=== PATIENT | male | born 1975 | race American Indian/Alaskan Native ===

== ENCOUNTER 2017-10-16 02:20 | Emergency (ER) | payer OTHER ==
[2017-10-16 02:44] VITALS: TEMP 99.1
[2017-10-16] MEDS ORDERED: Sodium Chloride 0.9% 1,000 ML IV STA (02:47)
--- NOTE | 2017-10-16 02:55 | ED PDOC ---
Arrival/HPI - General Chief Complaint: Shortness Of Breath Time Seen by Provider: 10/16/17 02:45 Historian: Patient - History of Present Illness Narrative History of Present Illness (Text): 10/16/17 02:48 A 41 year old male, past smoker, presents to the emergency department for a complaint of shortness of breath, fevers, chills, cough, rhinorrhea, and sore throat for the past 5 days. Patient states that he believed his symptoms were a result of withdrawal from his cigarette smoking. Patient states that his fever has resolved since yesterday, but continues to experience the cough, sore throat , rhinorrhea, and shortness of breath. The patient denies headache, dizziness, chest pain, dyspnea on exertion, abdominal pain, nausea, vomiting, diarrhea, neck pain, urinary/bowel changes, or any other complaint. Time/Duration: Other (5 Days) Symptom Onset: Sudden Symptom Course: Unchanged Activities at Onset: Rest, Light Context: Home Past Medical History - Provider Review Nursing Documentation Reviewed: Yes - Psychiatric Hx Substance Use: Yes Family/Social History - Physician Review Nursing Documentation Reviewed: Yes Family/Social History: No Known Family HX Smoking Status: Former Smoker Hx Alcohol Use: Yes Frequency of alcohol use: Few days per week Hx Substance Use: Yes Substance used: Marijuana Allergies/Home Meds Allergies/Adverse Reactions: Allergies No Known Allergies Allergy (Verified 10/16/17 02:27) Review of Systems - Physician Review All systems were reviewed & negative as marked: Yes - Review of Systems Constitutional: Fevers ENT: Sore Throat, Rhinorrhea Respiratory: SOB, Cough Cardiovascular: absent: Chest Pain Gastrointestinal: absent: Abdominal Pain, Stool Changes, Diarrhea, Nausea, Vomiting Genitourinary Male: absent: Urinary Output Changes Musculoskeletal: absent: Neck Pain Neurological: absent: Headache, Dizziness Physical Exam Vital Signs Reviewed: Yes Vital Signs Temp Pulse Resp BP Pulse Ox 10/16/17 04:20 100 H 18 148/89 100 10/16/17 02:30 20 98 10/16/17 02:21 99.1 F 102 H 20 158/87 H 99 Temperature: Afebrile Blood Pressure: Hypertensive Pulse: Tachycardic Respiratory Rate: Normal Appearance: Positive for: Well-Appearing, Non-Toxic, Comfortable Pain Distress: None Mental Status: Positive for: Alert and Oriented X 3 - Systems Exam Head: Present: Atraumatic, Normocephalic Pupils: Present: PERRL Extroacular Muscles: Present: EOMI Conjunctiva: Present: Normal Mouth: Present: Other (Pustular rash on bottom lip noted.) Pharnyx: Present: ERYTHEMA (Mild erythema) Nose (Internal): Present: Other (Nasal Congestion) Neck: Present: Normal Range of Motion Respiratory/Chest: Present: Good Air Exchange, Rhonchi (Expiratory rhonchi.). No: Respiratory Distress, Accessory Muscle Use Cardiovascular: Present: Regular Rate and Rhythm, Normal S1, S2. No: Murmurs Abdomen: No: Tenderness, Distention, Peritoneal Signs Back: Present: Normal Inspection Upper Extremity: Present: Normal Inspection. No: Cyanosis, Edema Lower Extremity: Present: Normal Inspection. No: Edema Neurological: Present: GCS=15, CN II-XII Intact, Speech Normal Skin: Present: Warm, Dry, Normal Color. No: Rashes Psychiatric: Present: Alert, Oriented x 3, Normal Insight, Normal Concentration Medical Decision Making ED Course and Treatment: 10/16/17 02:56 Impression: A 41 year old male presents to the emergency department for a complaint of cough , rhinorrhea, sore throat, cough, fever, and chills. Plan: -- EKG -- Chest X-ray -- Labs -- IV Fluids -- Reassess and disposition Progress Notes: 10/16/17 03:01 EKG: Ordered, reviewed, and independently interpreted the EKG. Rate : 105 BPM Rhythm : Sinus Tachycardia Interpretation : T waves in lead 3 and AVF, also noted in v3-v6. Non- specific changes. No ST- depressions or elevations are appreciated. Mildly abnormal EKG. 10/16/17 03:41: Chest X-ray read and interpreted by me shows no acute disease. Normal Chest X-ray. 10/16/17 03:44 On re-evaluation, patient feels better and is in no acute distress. Lab results show mild leukocytosis with left shift. Chest X-ray is negative. Will treat patient for bronchitis. I have discussed the results and plan with the patient, who expresses understanding. Patient in agreement with plan to be discharged home. Patient is stable for discharge. Patient was instructed to follow up with physician or return if symptoms worsen or new concerning symptoms arise. - Lab Interpretations Lab Results: 10/16/17 03:00 10/16/17 03:00 Lab Results 10/16/17 03:00: D-Dimer, Quantitative 436 H 10/16/17 03:00: Sodium 142, Potassium 3.8, Chloride 101, Carbon Dioxide 30, Anion Gap 16, BUN 11, Creatinine 1.2, Est GFR ( Amer) > 60, Est GFR (Non- Af Amer) > 60, Random Glucose 120 H, Calcium 9.0, Magnesium 2.3 H, Total Bilirubin 1.0, AST 76 H, ALT 70 H, Alkaline Phosphatase 149 H, Total Protein 7.8 , Albumin 4.2, Globulin 3.7, Albumin/Globulin Ratio 1.1 10/16/17 03:00: WBC 13.4 H, RBC 4.47, Hgb 13.0 L, Hct 37.0 L, MCV 82.8, MCH 29.1 , MCHC 35.1, RDW 12.8, Plt Count 377, MPV 10.2, Gran % 73.3 H, Lymph % (Auto) 17.7 L, [place] % (Auto) 8.4 H, Eos % (Auto) 0.4 L, Baso % (Auto) 0.2, Gran # 9.81 H, Lymph # (Auto) 2.4, [place] # (Auto) 1.1 H, Eos # (Auto) 0.1, Baso # (Auto) 0.03 I have reviewed the lab results: Yes - RAD Interpretation Radiology Orders: 10/16/17 02:45 CHEST PORTABLE [RAD] Stat - EKG Interpretation Interpreted by ED Physician: Yes Type: 12 lead EKG - Medication Orders Current Medication Orders: Discontinued Medications Sodium Chloride (Sodium Chloride 0.9%) 1,000 mls @ 999 mls/hr IV .Q1H1M STA Stop: 10/16/17 03:47 Last Admin: 10/16/17 03:03 Dose: 999 mls/hr eMAR Start Stop Document 10/16/17 03:03 AD (Rec: 10/16/17 03:03 AD [id number]) Intravenous Solution Start Date 10/16/17 Start Time 03:03 Disposition/Present on Arrival - Present on Arrival Any Indicators Present on Arrival: No History of DVT/PE: No History of Uncontrolled Diabetes: No Urinary Catheter: No History of Decub. Ulcer: No History Surgical Site Infection Following: None - Disposition Have Diagnosis and Disposition been Completed?: Yes Diagnosis: Bronchitis, Pustular folliculitis Disposition: HOME/ ROUTINE Disposition Time: 06:51 Patient Plan: Discharge Condition: GOOD Discharge Instructions (ExitCare): Acute Bronchitis Print Language: DANISH Prescriptions: Azithromycin 250 mg PO DAILY #6 tablet Mupirocin 2% Ointment [Bactroban Ointment] 22 applic EXT DAILY #14 tube Referrals: Nicko Arrington MD [Primary Care Provider] - Follow up with primary Forms: [facility] (Guyanese)
[2017-10-16 03:27] LABS: BASO # 0.03 K/mm3 (0.0-2.0); BASO % 0.2 % (0.0-3.0); EOS # 0.1 (0.0-0.7); EOS % 0.4 % (1.5-5.0); GRAN # 9.81 (1.4-6.5); GRAN % 73.3 % (50.0-68.0); LYMPH # 2.4 (1.2-3.4); LYMPH % 17.7 % (22.0-35.0); MEAN CELL VOLUME 82.8 fl (80.0-105.0); MEAN CORPUSCULAR HEMOGLOBIN 29.1 pg (25.0-35.0); MEAN CORPUSCULAR HGB CONC 35.1 g/dl (31.0-37.0); MEAN PLATELET VOLUME 10.2 fl (7.0-11.0); MONO # 1.1 (0.1-0.6); MONO % 8.4 % (1.0-6.0); RBC 4.47 10^6/uL (3.5-6.1); RED CELL DISTRIBUTION WIDTH 12.8 % (11.5-14.5); WHITE BLOOD COUNT 13.4 10^3/ul (4.5-11.0)
[2017-10-16 03:30] LABS: ALB/GLOB RATIO 1.1 (1.1-1.8)
[2017-10-16 03:32] LABS: ALBUMIN 4.2 g/dL (3.0-4.8); ALT/SGPT 70 U/L (7-56); AST/SGOT 76 U/L (17-59); BLOOD UREA NITROGEN 11 mg/dL (7-21); GFR AFRICAN-AMERICAN > 60; GFR NON-AFRICAN AMERICAN > 60
[2017-10-16 04:38] VITALS: BP 148/89; PULSE 100; RESP 18; O2SAT 100
--- NOTE | 2017-10-16 09:18 | RAD ---
HISTORY: Shortness of breath. COMPARISON: No prior. FINDINGS: LUNGS: No active pulmonary disease. PLEURA: No significant pleural effusion identified, no pneumothorax apparent. CARDIOVASCULAR: Normal. OSSEOUS STRUCTURES: No significant abnormalities. VISUALIZED UPPER ABDOMEN: Normal. OTHER FINDINGS: None. IMPRESSION: No active disease.
--- NOTE | 2017-10-16 22:46 | CARD ---
APPROVED REPORT EKG Measurement Heart [id number] <Conclusion> Sinus tachycardia Nonspecific T wave abnormality Abnormal ECG
== END 2017-10-16 04:20 | disposition home or self-care (01) ==
LOC: ED 02:20
DX: J40 Bronchitis, not specified as acute or chronic (principal); L01.02 Bockhart's impetigo
CPT/HCPCS: 71045; 80053; 83735; 85025; 85378; 93005; 99284; J7030